=== PATIENT | male | born 1995 | race Caucasian/White ===

== ENCOUNTER 2025-02-06 19:49 | Emergency (ER) | payer OTHER ==
[~2025-02-06] VITALS: Ht 167.6 cm; Wt 59.0 kg
[~2025-02-06 19:49] MED LIST: NKHM; VICODIN 5/500 505 MG PO
[2025-02-06] MEDS ORDERED: Tdap Vaccine 0.5 ML SYR (Adult Vaccine) IM ONE (20:10)
[2025-02-06] MEDS ORDERED: Ondansetron Hydrochloride 4 MG TAB PO ONE (20:10)
[2025-02-06] MEDS ORDERED: MORPHINE Sulfate 2 MG/ML SYR IM ONE (20:10)
== END 2025-02-06 20:39 | disposition short-term general hospital (02) ==
LOC: ED 19:49
DX: S61.213A Laceration without foreign body of left middle finger without damage to nail, initial encounter (principal); S61.132A Puncture wound without foreign body of left thumb with damage to nail, initial encounter; R00.0 Tachycardia, unspecified; W34.09XA Accidental discharge from other specified firearms, initial encounter; Y93.89 Activity, other specified; Y92.89 Other specified places as the place of occurrence of the external cause; Y99.8 Other external cause status